=== PATIENT | female | born 1975 ===

== ENCOUNTER 2020-01-25 11:04 | Emergency (ER) | payer SELFPAY ==
[2020-01-25 11:10] VITALS: BP 141/80
[2020-01-25] MEDS ORDERED: ASPIRIN 325 MG TAB PO ONE (11:11)
[2020-01-25 11:35] LABS: Basophils % (Auto) 0.6 % (0.0-1.8); Eosinophils # (Auto) 0.2 K/mm3 (0.0-0.4); Eosinophils % (Auto) 3.1 % (0.0-4.3); Hematocrit 40.2 % (30.3-42.9); Hemoglobin 13.6 gm/dl (10.1-14.3); Lymphocytes # (Auto) 2.1 K/mm3 (1.2-5.4); Mean Corpuscular HGB Conc 34 % (30-34); Mean Corpuscular Volume 91 fl (79-97); Monocytes # (Auto) 0.5 K/mm3 (0.0-0.8); Monocytes % (Auto) 10.5 % (0.0-7.3); Platelet Count 188 K/mm3 (140-440); Red Blood Count 4.42 M/mm3 (3.65-5.03); Red Cell Distribution Width 13.2 % (13.2-15.2)
--- NOTE | 2020-01-25 11:39 | XRay Report ---
CHEST 2 VIEWS INDICATION / CLINICAL INFORMATION: Chest Pain. COMPARISON: None available. FINDINGS: SUPPORT DEVICES: None. HEART / MEDIASTINUM: No significant abnormality. LUNGS / PLEURA: No significant pulmonary or pleural abnormality. No pneumothorax. ADDITIONAL FINDINGS: No significant additional findings. IMPRESSION: 1. No acute findings. Signer Name: Harrison Reilly MD Signed: 01/25/2020 11:34 AM Workstation Name: [id number]
[2020-01-25 11:57] LABS: BUN/Creatinine Ratio 10; Blood Urea Nitrogen 8 mg/dL (7-17); Calcium 9.2 mg/dL (8.4-10.2); Hemolysis Index 5
[2020-01-25] MEDS ORDERED: IBUPROFEN 800 MG TAB PO ONE (13:30)
--- NOTE | 2020-01-25 13:36 | Emergency Department Report ---
ED Chest Pain HPI - General Chief Complaint: Chest Pain Stated Complaint: CHEST PAIN/ARM PAIN Source: patient Mode of arrival: Ambulatory Limitations: No Limitations - History of Present Illness Initial Comments: 44-year-old female complaining of chest pain x2 weeks under her left breast along with left arm pain patient denies nausea vomiting and diaphoresis she describes the pain as constant aching for 2 weeks the pain is worse when she lifts her left arm or turn to her left side. Patient states she is currently working at [employer] and the production has increased and she is now working 10 hours a day lifting about 10 pounds patient associates her ch est pain with the heavy lifting. Patient requesting a note for light duty at work - Related Data Previous Rx's Medication Instructions Recorded Last Taken Type Ibuprofen [Motrin] 800 mg PO Q8HR PRN #20 tablet 01/25/20 Unknown Rx Allergies Allergy/AdvReac Type Severity Reaction Status Date / Time No Known Allergies Allergy Unverified 01/25/20 11:09 Heart Score - HEART Score History: Slightly suspicious EKG: Normal Age: < 45 Risk factors: No known risk factors Troponin: < normal limit HEART Score: 0 - Critical Actions Critical Actions: 0-3 pts:0.9-1.7%risk of adverse cardiac event.Candidate for discharge ED Review of Systems ROS: Stated complaint: CHEST PAIN/ARM PAIN Other details as noted in HPI Comment: All other systems reviewed and negative Constitutional: no symptoms reported. denies: chills, fever Eyes: denies: eye pain, vision change ENT: denies: ear pain, throat pain Respiratory: denies: cough, SOB at rest, wheezing Cardiovascular: chest pain. denies: dyspnea on exertion, edema, syncope, paroxysmal nocturnal dyspnea Endocrine: denies: excessive sweating, flushing, intolerance to cold, increased hunger, increased thirst Gastrointestinal: denies: abdominal pain, nausea, vomiting, diarrhea, constipation Musculoskeletal: denies: back pain, arthralgia Neurological: denies: headache Psychiatric: denies: anxiety, auditory hallucinations ED Past Medical Hx - Past Medical History Previous Medical History?: No - Surgical History Past Surgical History?: Yes Additional Surgical History: Incarcerated hernia - Social History Smoking Status: Never Smoker Substance Use Type: None - Medications Home Medications: Home Medications Medication Instructions Recorded Confirmed Last Taken Type Ibuprofen [Motrin] 800 mg PO Q8HR PRN #20 tablet 01/25/20 Unknown Rx ED Physical Exam - General Limitations: No Limitations General appearance: alert, in no apparent distress - Head Head exam: Present: atraumatic - Eye Eye exam: Present: normal appearance - ENT ENT exam: Present: normal exam, mucous membranes moist - Neck Neck exam: Present: normal inspection. Absent: lymphadenopathy - Respiratory Respiratory exam: Present: normal lung sounds bilaterally - Cardiovascular Cardiovascular Exam: Present: regular rate, normal heart sounds, other (tenderness with palpation under left breast and left arm) - GI/Abdominal GI/Abdominal exam: Present: soft. Absent: distended, tenderness - Extremities Exam Extremities exam: Present: normal inspection, full ROM, normal capillary refill. Absent: pedal edema, joint swelling - Neurological Exam Neurological exam: Present: alert, oriented X3 - Psychiatric Psychiatric exam: Present: normal affect - Skin Skin exam: Present: warm, dry, intact, normal color. Absent: rash ED Course Vital Signs 01/25/20 01/25/20 11:09 13:46 Temperature 98.8 F Pulse Rate 75 Respiratory 16 18 Rate Blood Pressure 141/80 O2 Sat by Pulse 98 Oximetry - Reevaluation(s) Reevaluation #1: 01/25/20 14:48 Patient ambulating in the [facility] states she is doing well and she is ready to go home she is chest pain-free all findings reviewed with patient SADIE score - Sadie Score Age > 65: (0) No Aspirin use within the Past 7 Days: (0) No 3 or more CAD Risk Factors: (0) No 2 or more Angina events in past 24 hrs: (0) No Known CAD with more than 50% Stenosis: (0) No Elevated Cardiac Markers: (0) No ST Deviation Greater than 0.5mm: (0) No SADIE Score: 0 ED Medical Decision Making - Lab Data Result diagrams: 01/25/20 11:17 01/25/20 11:17 - EKG Data Rate: normal - EKG Data When compared to previous EKG there are: previous EKG unavailable Interpretation: normal EKG - Radiology Data Radiology results: report reviewed CHEST XRAY NO ACUTE FINDINGS - Medical Decision Making Based on history and of heavy lifting at [facility]. And chest wall tenderness with palpation along with a normal sinus EKG with a rate of 61- troponin negative chest x-ray netative. this is most likely musculoskeletal chest wall pain Critical care attestation.: If time is entered above; I have spent that time in minutes in the direct care of this critically ill patient, excluding procedure time. ED Disposition Clinical Impression: Chest wall pain, Costochondral chest pain Disposition: TO HOME OR SELFCARE Is pt being admited?: No Does the pt Need Aspirin: No Condition: Stable Instructions: Chest Pain (ED), Costochondritis (ED) Additional Instructions: Follow-up with your primary care doctor in 2 to 3 days or return to the emergency room for any worsening pain chest pain shortness of breath fever chills Prescriptions: Ibuprofen [Motrin] 800 mg PO Q8HR PRN #20 tablet PRN Reason: Pain , Severe (7-10) Referrals: PRIMARY CAREMD [Primary Care Provider] - 3-5 Days ROQUE FRIED MD [Staff Physician] - 3-5 Days Forms: Work/School Release Form(ED) Time of Disposition: 14:50
== END 2020-01-25 15:00 | disposition home or self-care (01) ==
LOC: ED 11:04
DX: R07.89 Other chest pain (principal); Z98.890 Other specified postprocedural states; Z79.899 Other long term (current) drug therapy
CPT/HCPCS: 36415; 71046; 80048; 84484; 85025; 93005

== ENCOUNTER 2020-01-29 14:03 | Emergency (ER) | payer SELFPAY ==
--- NOTE | 2020-01-29 14:23 | Emergency Department Report ---
Stated Complaint: CHEST DISCOMFORT Time Seen by Provider: 01/29/20 14:18 - HPI History of Present Illness: This is a 44-year-old female nontoxic well in appearnce with no acute signs of distress presents to the ED for work excuse restrictions to be removed. Patient was seen for chest pains and stated all symptoms has resolved and subsided. Patient denies any chest pains, SOB, fever, chills, headache, stiff neck, nausea, vomiting, back pains, urinary symptoms. Denies any allergies. Denies follow up with PCP. Patient denies any symptoms or complaints. - Exam Vital Signs: Vital Signs 01/29/20 14:22 Temperature 98.2 F Pulse Rate 82 Respiratory 16 Rate Blood Pressure 159/76 [Left] O2 Sat by Pulse 98 Oximetry Physical Exam: normal physical exam. no chest pains. No sob. negative swelliong. MSE screening note: Focused history and physical exam performed. Due to findings the following was ordered: ED Medical Decision Making - Medical Decision Making Patient is stable and was examined by me. VSS. Patient is notified must follow-up with barrel tester and/or PCP for this. Patient is asymptotic in the ED. Patient was instructed to Follow-up with a primary care doctor in 3-5 days or if symptoms worsen and continue return to emergency room as soon as possible. At time of discharge, the patient does not seem toxic or ill in appearance. No acute signs of distress noted. Patient agrees to discharge treatment plan of care. No further questions noted by the patient. ED Disposition for MSE Clinical Impression: Encounter to obtain excuse from work Disposition: MED SCREENING EXAM-LEFT Is pt being admited?: No Does the pt Need Aspirin: No Condition: Stable Additional Instructions: Follow-up with a primary care and barrel tester doctor in 3-5 days for restrictions changes or if new/worsening symptoms and continue return to emergency room as soon as possible. Referrals: PRIMARY MD RICHARD [Referring] - 3-5 Days ROQUE FRIED MD [Staff Physician] - 3-[address] [facility] [Provider Group] - 3-5 Days [facility] [Outside] - 3-5 Days MAURIZIO ROSA MD [Staff Physician] - 3-5 Days
[2020-01-29 14:24] VITALS: BP 159/76
== END 2020-01-29 14:39 | disposition left against medical advice (07) ==
LOC: ED 14:03
DX: R07.89 Other chest pain (principal); Z53.21 Procedure and treatment not carried out due to patient leaving prior to being seen by health care provider